=== PATIENT | male | born 1965 | race Caucasian/White ===

== ENCOUNTER 2024-02-05 02:59 | Inpatient (IN) ==
[2024-02-05 03:36] LABS: ABS Lymphocytes 0.5 10^3/uL (1.0-4.8); ABS Monocytes 0.8 10^3/uL (0.0-1.1); ABS Neutrophils 8.3 10^3/uL (1.5-7.6); ABS Nucleated RBC 0.07 10^3/ul; Eosinophil % 0.1 %; Hematocrit 52.2 % (38-53); Hemoglobin 17.3 g/dL (13.2-16.3); Mean Corpuscular Hemoglobin 28.7 pg (27-33); Mean Corpuscular Hgb Conc 33.2 g/dL (31-36); Mean Corpuscular Volume 86.5 fL (80-97); Mean Platelet Volume 9.7 fL (7.5-11.2); Nucleated Red Blood Cells % 0.7 %/100WBC (0.0-0.8); Platelet Count 137 10^3/uL (150-450); Red Blood Count 6.03 10^6/uL (4.06-5.63); Red Cell Distribution Width 16.5 % (12-17); White Blood Count 9.6 10^3/uL (3.6-10.2)
[2024-02-05 03:41] LABS: INR 1.46 (0.85-1.14)
[2024-02-05 03:59] LABS: High Sens Troponin Baseline 184 pg/mL (<20)
[2024-02-05 04:27] LABS: ALT 40 U/L (7-52); AST 47 U/L (13-39); Albumin 3.4 g/dL (3.2-5.2); Albumin/Globulin Ratio 1.3 (1-3); Alcohol, S < 13 mg/dL (<13); Alkaline Phosphatase 117 U/L (35-149); Anion Gap 17 mmol/L (2-16); Blood Urea Nitrogen 24 mg/dL (6-24); CO2 Carbon Dioxide 18 mmol/L (22-32); Chloride 94 mmol/L (101-111); Creatinine, Serum 1.52 mg/dL (0.67-1.17); Globulin 2.6 g/dL (2-4); Glucose 332 mg/dL (70-100); Potassium 4.4 mmol/L (3.5-5.0); Sodium 129 mmol/L (135-145); Total Bilirubin 1.4 mg/dL (0.2-1.0); eGFR CKD-EPI 53.4 (>60)
[2024-02-05 04:56] LABS: High Sensitivity Troponin 1 Hr 192 pg/mL (<20)
[2024-02-05] MEDS: Iodixanol (CONTRAST) 320 MG/ML 100 ML SDV IV ONE (05:17)
[2024-02-05] MEDS: Heparin 5000 UNITS/ML 1 mL VIAL IV SCH (05:46)
[2024-02-05] MEDS: Heparin DRIP 25,000 UNITS BAG 25,000 UNITS/250 ML BAG IV SCH (05:47)
[2024-02-05 06:23] LABS: Creatinine, Serum 1.48 mg/dL (0.67-1.17); eGFR CKD-EPI 55.2 (>60)
[2024-02-05] MEDS ORDERED: Azithromycin 500 mg/250 ml NS 500 MG/250 ML BAG IVPB ONE (06:39)
[2024-02-05] MEDS ORDERED: Remdesivir 100 mg Vial 200 MG in NS 0.9% 250 ml 210 ML IV ONE (07:30)
[2024-02-05] MEDS ORDERED: Lactated Ringers 1000 ml BAG 1,000 ML IV ONE (07:35)
[2024-02-05] MEDS: cefTRIAXone 1 gm/50 mL D5W 1 GM/50 ML BAG IV ONE (07:38)
[2024-02-05 07:39] LABS: INR 1.63 (0.85-1.14)
[2024-02-05] MEDS ORDERED: Insulin GLARGINE 100 un/ml 10 ml VIAL SUBCUT ONE (07:44)
[2024-02-05 07:58] LABS: ALT 62 U/L (7-52); Albumin 3.3 g/dL (3.2-5.2); Albumin/Globulin Ratio 1.3 (1-3); Alkaline Phosphatase 110 U/L (35-149); Anion Gap 16 mmol/L (2-16); Blood Urea Nitrogen 25 mg/dL (6-24); CO2 Carbon Dioxide 19 mmol/L (22-32); Calcium 7.9 mg/dL (8.6-10.3); Chloride 92 mmol/L (101-111); Creatinine, Serum 1.48 mg/dL (0.67-1.17); Globulin 2.6 g/dL (2-4); Glucose 317 mg/dL (70-100); Sodium 127 mmol/L (135-145); Total Bilirubin 1.5 mg/dL (0.2-1.0); Total Protein 5.9 g/dL (6.4-8.9); eGFR CKD-EPI 55.2 (>60)
[2024-02-05] MEDS ORDERED: LORazepam 2 mg VIAL 1 ml ONE (08:46)
[2024-02-05] MEDS ORDERED: Morphine 4 MG/ML VIAL (1 ml) ONE (08:50)
[2024-02-05] MEDS ORDERED: Rocuronium 50 mg VIAL 10 mg/ml 5 ml VIAL (50 mg) ONE (08:54)
[2024-02-05] MEDS ORDERED: Succinylcholine 200 mg VIAL 20 mg/ml 10 ml VIAL (200 mg) ONE (08:54)
[2024-02-05] MEDS ORDERED: TENECTEPLASE 50 MG VIAL KIT 5 MG/ML (reconstituted) IV ONE (08:54)
[2024-02-05] MEDS ORDERED: LORazepam 2 mg VIAL 1 ml IV PUSH ONE (09:00)
[2024-02-05] MEDS ORDERED: Lorazepam PYXIS KEY PRN (09:00)
[2024-02-05] MEDS ORDERED: Norepinephrine IV 1 MG/ML 4 ML VIAL ONE (09:03)
[2024-02-05] MEDS ORDERED: Sodium Bicarbonate 8.4% SYR 50 ml SYRINGE ONE (09:03)
[2024-02-05] MEDS ORDERED: EPINEPHrine SYR 0.1MG/ML 10 ml SYRINGE IV ONE (09:03)
[2024-02-05 10:27] VITALS: BP 61/34
[2024-02-05 10:28] LABS: High Sens Troponin Baseline 162 pg/mL (<20)
[2024-02-05 10:33] LABS: Hematocrit 39.7 % (38-53); Hemoglobin 12.6 g/dL (13.2-16.3); Mean Corpuscular Hemoglobin 29.1 pg (27-33); Mean Corpuscular Hgb Conc 31.8 g/dL (31-36); Mean Corpuscular Volume 91.5 fL (80-97); Red Blood Count 4.34 10^6/uL (4.06-5.63); Red Cell Distribution Width 17.1 % (12-17); White Blood Count 8.5 10^3/uL (3.6-10.2)
[2024-02-05 10:41] LABS: Anion Gap 15 mmol/L (2-16); Blood Urea Nitrogen 21 mg/dL (6-24); CO2 Carbon Dioxide 16 mmol/L (22-32); Calcium 8.6 mg/dL (8.6-10.3); Chloride 104 mmol/L (101-111); Creatinine, Serum 1.39 mg/dL (0.67-1.17); Glucose 462 mg/dL (70-100); Sodium 135 mmol/L (135-145); eGFR CKD-EPI 59.5 (>60)
[2024-02-05 11:07] LABS: INR 1.79 (0.85-1.14)
[2024-02-05 11:19] LABS: Mean Platelet Volume 10.5 fL (7.5-11.2); Platelet Count 71 10^3/uL (150-450)
[2024-02-06] MEDS ORDERED: Insulin GLARGINE 100 un/ml 10 ml VIAL SUBCUT SCH (09:00)
== END 2024-02-05 10:43 | disposition expired | DRG 196 ==
LOC: ED 02:59 → EDHOLD 07:35
PROVIDERS: ADMIT Internal Medicine; ATTEND Internal Medicine